=== PATIENT | female | born 1990 | race African-American/Black ===

== ENCOUNTER 2018-10-14 13:32 | Emergency (ER) | payer OTHER ==
[~2018-10-14] VITALS: Ht 167.6 cm; Wt 104.3 kg
[2018-10-14] MEDS ORDERED: LISINOPRIL20 MG PO (13:43)
[2018-10-14 14:12] LABS: ABSOLUTE LYMPHOCYTES 1.4 thou/uL (0.8-5.3); ABSOLUTE MONOCYTES 0.6 thou/uL (0.0-1.2); ABSOLUTE NEUTROPHILS 1.3 thou/uL (1.6-8.1); HEMATOCRIT 38.9 % (37.0-47.0); HEMOGLOBIN 12.2 gm/dL (12.0-15.0); LYMPHOCYTES 42.5 %; MCH 22.5 pg (26.0-34.0); MCHC 31.5 g/dL (28.0-37.0); MCV 71.4 fL (80.0-100.0); MONOCYTES 18.4 %; NUCLEATED RBCS 0 /100WBC; PLATELET COUNT* 264 thou/uL (150-400); POLYS 38.1 %; RBC 5.44 mil/uL (4.20-5.00); RDW-CV 17.2 % (10.5-14.5); WBC 3.3 thou/uL (4.0-11.0)
[2018-10-14 14:18] LABS: CALCIUM 8.4 mg/dL (8.5-10.1); CREATININE 0.9 mg/dL (0.6-1.3)
[2018-10-14 14:20] LABS: POTASSIUM 2.9 mmol/L (3.5-5.1)
[2018-10-14 14:22] LABS: ALBUMIN 3.4 g/dL (3.4-5.0); TOTAL BILIRUBIN 0.3 mg/dL (<0.1-1.0); TOTAL PROTEIN 8.2 g/dL (6.4-8.2)
[2018-10-14] MEDS ORDERED: ONDANSETRON HCL4 M2 PO (14:42)
[2018-10-14] MEDS ORDERED: AMOXICILLIN 50500 MG PO (14:42)
[2018-10-14] MEDS ORDERED: ACETAMINOPHEN-1 EAC1 PO (14:42)
[2018-10-14] MEDS ORDERED: PROMETHAZINE V120 ML PO (14:42)
[2018-10-14 14:51] LABS: ANISOCYTOSIS 1+; OVALOCYTES 1+; PLATELET ESTIMATE ADEQUATE
[2018-10-14 14:52] LABS: MICROCYTES 2+
[2018-10-14 15:14] LABS: URINE BILIRUBIN NEGATIVE (Negative); URINE BLOOD 2+ (Negative); URINE CLARITY CLEAR; URINE COLOR YELLOW; URINE GLUCOSE-RANDOM NEGATIVE (Negative); URINE KETONES NEGATIVE (Negative); URINE LEUKOCYTES-REFLEX NEGATIVE (Negative); URINE NITRITE-REFLEX NEGATIVE (Negative); URINE PROTEIN NEGATIVE (Negative); URINE UROBILINOGEN 0.2 E.U./dl (0.2-1.0)
[2018-10-14 15:21] LABS: MUCUS 0-3 Light strn/LPF (None Seen); SQUAMOUS >10 Many /LPF (0-3)
[2018-10-14 15:22] LABS: BACTERIA-REFLEX 1-9 Few /HPF (None Seen); CRYSTALS None Seen /LPF (None Seen); HYALINE CASTS 0-3 Few /LPF (None Seen)
[2018-10-14 15:23] LABS: URINE RBC 0-2 Rare /HPF (0-2); URINE WBC-REFLEX 0-5 Rare /HPF (0-5)
[2018-10-14 15:36] VITALS: BP 165/101
== END 2018-10-14 15:38 | disposition home or self-care (01) ==
LOC: M.ERS 13:32
PROVIDERS: Physician Assistant
DX: J20.9 Acute bronchitis, unspecified (principal); E87.6 Hypokalemia; R11.2 Nausea with vomiting, unspecified; I10 Essential (primary) hypertension

== ENCOUNTER 2019-12-17 14:30 | Emergency (ER) | payer OTHER ==
[~2019-12-17] VITALS: Ht 170.2 cm; Wt 113.4 kg
[~2019-12-17 14:30] MED LIST: ACETAMINOPHEN-1 EAC1 PO; AMOXICILLIN 50500 MG PO; LISINOPRIL20 MG PO; ONDANSETRON HCL4 M2 PO; PROMETHAZINE V120 ML PO
[2019-12-17] MEDS ORDERED: LISINOPRIL-HCT1 EACH PO (14:38)
[2019-12-17] MEDS ORDERED: TESSALON PERLE100 MG PO (15:49)
[2019-12-17] MEDS ORDERED: APAP W/CODEINE1 TA2 PO (15:49)
[2019-12-17 16:06] VITALS: BP 145/70
== END 2019-12-17 16:06 | disposition home or self-care (01) ==
LOC: M.ERS 14:30
DX: J02.9 Acute pharyngitis, unspecified (principal); Z20.828 Contact with and (suspected) exposure to other viral communicable diseases; R05 Cough; I10 Essential (primary) hypertension; F17.210 Nicotine dependence, cigarettes, uncomplicated; Z79.899 Other long term (current) drug therapy

== ENCOUNTER 2020-04-10 02:20 | Emergency (ER) | payer OTHER ==
[~2020-04-10] VITALS: Ht 170.2 cm; Wt 122.5 kg
[~2020-04-10 02:20] MED LIST changes: +APAP W/CODEINE1 TA2 PO; +LISINOPRIL-HCT1 EACH PO; +TESSALON PERLE100 MG PO
[2020-04-10 03:20] LABS: URINE BILIRUBIN NEGATIVE (Negative); URINE BLOOD TRACE (Negative); URINE CLARITY CLOUDY; URINE COLOR YELLOW; URINE GLUCOSE-RANDOM NEGATIVE (Negative); URINE KETONES NEGATIVE (Negative); URINE LEUKOCYTES-REFLEX NEGATIVE (Negative); URINE NITRITE-REFLEX NEGATIVE (Negative); URINE PROTEIN 2+ (Negative); URINE SPECIFIC GRAVITY >= 1.030 (1.005-1.030); URINE UROBILINOGEN 0.2 E.U./dl (0.2-1.0)
[2020-04-10 03:21] LABS: BACTERIA-REFLEX >30 Many /HPF (None Seen); CASTS None Seen /LPF (None Seen); MUCUS 0-3 Light strn/LPF (None Seen); SQUAMOUS 0-3 Few /LPF (0-3); URINE RBC 3-10 Few /HPF (0-2); URINE WBC-REFLEX 0-5 Rare /HPF (0-5)
[2020-04-10 03:22] LABS: AMORPHOUS URATES Many /LPF (None Seen)
[2020-04-10 03:27] LABS: AMP/METHAMP Negative (Negative); BARBITURATES Negative (Negative); BENZODIAZEPINES Negative (Negative); COCAINE Negative (Negative); METHADONE Negative (Negative); OPIATES Negative (Negative); PCP Negative (Negative); THC Negative (Negative)
[2020-04-10] MEDS ORDERED: KEFLEX500 M1 PO (05:02)
[2020-04-10] MEDS ORDERED: NAPROSYN500 MG PO (05:02)
[2020-04-10 05:10] VITALS: BP 165/91
== END 2020-04-10 05:10 | disposition home or self-care (01) ==
LOC: M.ERS 02:20
PROVIDERS: Personal Emergency Response Attendant
DX: N39.0 Urinary tract infection, site not specified (principal); I10 Essential (primary) hypertension; Z79.899 Other long term (current) drug therapy